=== PATIENT | male | born 1995 | race Caucasian/White ===

== ENCOUNTER 2020-06-17 08:38 | Emergency (ER) | payer BC ==
[~2020-06-17] VITALS: Ht 190.5 cm; Wt 172.7 kg
[2020-06-17 08:45] VITALS: TEMP 97.2
[2020-06-17] MEDS ORDERED: PERCOCET 325 MG1 TA2 PO (11:08)
[2020-06-17] MEDS ORDERED: MEDROL 4MG DOSPA4 MG PO (11:08)
[2020-06-17 12:45] VITALS: BP 126/88; PULSE 96
== END 2020-06-17 12:45 | disposition home or self-care (01) ==
LOC: COL.ER 08:38
DX: M54.16 Radiculopathy, lumbar region (principal)
CPT/HCPCS: J1100; J1170; J2360